=== PATIENT | female | born 1990 | race Caucasian/White ===

== ENCOUNTER 2017-05-27 08:19 | Emergency (ER) | payer OTHER ==
[~2017-05-27] VITALS: Ht 160 cm; Wt 76.3 kg
[2017-05-27 08:40] VITALS: BP 120/60
--- NOTE | 2017-05-27 08:47 | NUR ---
PT AA&OX4 WITH EVEN AND STEADY GAIT; PT TO LOBBY AWAITING OPEN BED.
--- NOTE | 2017-05-27 09:29 | NUR ---
PT TAKEN TO BED 11.
--- NOTE | 2017-05-27 09:30 | NUR ---
26F BIB SELF C/O BODY ACHES, NAUSEA, RUNNY NOSE X 4 DAYS. DENIES N/V/D; SKIN IS PINK/WARM/DRY; AAOX4 WITH EVEN AND STEADY GAIT; LUNGS CLEAR BL; PATIENT STATES PAIN OF 0/10 AT THIS TIME. Addendum: 05/27/17 at 0937 by [facility] STATED HAS COUGH, EPIGASTRIC PAIN, BOTH EYES SLIGHTLY REDNESS & ITHCHING.
--- NOTE | 2017-05-27 09:57 | NUR ---
Patient being evaluated by physician at bedside.
[2017-05-27 10:21] VITALS: BP 118/67
--- NOTE | 2017-05-27 10:21 | NUR ---
Patient discharged with v/s stable. Written and verbal after care instructions given and explained. Patient alert, oriented and verbalized understanding of instructions. Ambulatory with steady gait. All questions addressed prior to discharge. ID band removed. Patient advised to follow up with PMD. Rx of POLYTRIM given. Patient educated on indication of medication including possible reaction and side effects. Opportunity to ask questions provided and answered.
== END 2017-05-27 10:21 | disposition home or self-care (01) ==
LOC: MED 08:19
DX: J06.9 Acute upper respiratory infection, unspecified (principal); H10.9 Unspecified conjunctivitis; Z88.5 Allergy status to narcotic agent; Z88.6 Allergy status to analgesic agent
CPT/HCPCS: 99283

== ENCOUNTER 2017-11-26 21:22 | Emergency (ER) | payer OTHER ==
[~2017-11-26] VITALS: Ht 160 cm; Wt 73.1 kg
[2017-11-26 21:30] VITALS: BP 113/45
--- NOTE | 2017-11-26 23:45 | NUR ---
PATIENT CALLED NO ANSWER
--- NOTE | 2017-11-27 | NUR ---
PATIENT CALLED NO ANSWER
--- NOTE | 2017-11-27 00:23 | NUR ---
PATIENT CALLED NO ANSWER
--- NOTE | 2017-11-27 00:25 | NUR ---
PATIENT LEFT WITHOUT BEING SEEN BY DR. GIANG. NO FURTHER CARE PROVIDED FOR PATIENT.
== END 2017-11-26 23:45 | disposition left against medical advice (07) ==
LOC: MED 21:22
DX: R50.9 Fever, unspecified (principal); Z53.21 Procedure and treatment not carried out due to patient leaving prior to being seen by health care provider